=== PATIENT | female | born 1960 | race Caucasian/White ===

== ENCOUNTER 2023-10-20 09:00 | Day surgery (SDC) | payer OTHER, SELFPAY ==
--- NOTE | 2023-10-20 | PATH_ITS ---
[facility] Accession Number: [id number] No. of containers..02 Tissue . 01 Material submitted: . PART A: colon - CECAL POLYP PART B: colon - ASCENDING COLON POLYP . 01 Diagnosis: Part A: CECAL POLYP: Tubular adenoma. . Part B: ASCENDING COLON POLYP: Tubular adenoma. [facility] 10/24/2023 1458 Local . 01 Electronically signed: . Erasmo Caballero MD, Pathologist NPI- [id number] . 01 Gross description: . A. Received in formalin with two patient identifiers and cecal polyp, is a single luis soft tissue fragment, 0.3 cm in greatest dimension. Submitted in A1. . B. Received in formalin with two patient identifiers and ascending colon polyp, are two luis soft tissue fragments, 0.3 to 0.4 cm in greatest dimension. Submitted in B1. ([id number]) /MRV 10/24/2023 1458 Local . 01 Pathologist provided ICD-10: D12.0, D12.2 . 01 CPT . 621380, [id number] Specimen Comment: A courtesy copy of this report has been sent to [phone] Performed at: [address] [facility] [address], [place], [place] [id number] MD Erasmo Caballero MD Phone: [phone]
[2023-10-20 09:25] VITALS: BP 142/88; PULSE 83; RESP 17; TEMP 36.8; O2SAT 99
--- NOTE | 2023-10-20 09:31 | PM.HP.1 ---
History of Present Illness History of Present Illness Date Patient Seen: 10/20/23 Time Patient Seen: 09:32 Chief complaint: Screening Colonoscopy Narrative: Bebeto is a 62 year old woman here for a colonoscopy. Her last colonoscopy was 10 years ago. She believes polyps were removed. She does not know what type of polyps. Meds Home Medications and Allergies Home Medications Medication Instructions Recorded Confirmed Type Macrobid 100 mg PO BID 10/20/23 10/20/23 History Allergies Allergy/AdvReac Type Severity Reaction Status Date / Time No Known Drug Allergies Allergy Verified 10/20/23 09:19 Exam Const General: No acute distress Resp Effort & Inspection: normal respiratory effort Assessment & Plan Assessment and plan (1) Colon cancer screening: Status: Acute Plan We reviewed the risks and benefits of colonoscopy for colon cancer screening and she would like to proceed. Time-Based Coding :: [TOTAL MINUTES] spent with patient and on the chart (including review of chart, obtaining history, exam, reviewing outside data, placing orders, documenting exam and treatment plan, and counseling patient) on [DATE].
[2023-10-20] MEDS: LACTATED RINGERS 1,000 ML 42 ML IV (09:43)
[2023-10-20 10:34] VITALS: BP 105/74; PULSE 80; RESP 13; TEMP 36.4; O2SAT 92
--- NOTE | 2023-10-20 10:36 | PM.OP.COLON ---
Operative Date/Time/Diagnoses Date of procedure: 10/20/23 Time of procedure: 10:36 Pre-op diagnosis: Colon cancer screening Post-op diagnosis: same Procedure & Clinicians Study performed: Colonoscopy Same procedure as scheduled: Yes Surgeon: Uri Porras Procedure Notes Procedure in detail: Surgeon: Uri Porras MD Anesthesia: Ginna Syed CRNA Procedure: The patient was brought to the endoscopy suite, placed in left lateral decubitus position. The patient was connected to monitoring devices. A time-out was performed. Sedation was administered. Once the patient was adequately sedated, a digital rectal exam was performed and was normal. The scope was then inserted and advanced to the cecum where the appendiceal orifice was identified and photographed. The scope was then slowly withdrawn over greater than 6 minutes. The mucosa was thoroughly inspected. There was a 3 mm polyp in the cecum removed with a cold snare. There was a 5 mm polyp in the ascending colon removed with a cold snare. The scope was retroflexed in the rectum. No other abnormalities were seen. The scope was straightened and removed. The patient was awakened and brought to recovery. Scope withdrawal time: 10 minutes Sedation time: 16 minutes EBL: 2 mL Findings: 3 mm polyp in the cecum and 5 mm polyp ascending colon Post-procedure Disposition: PACU
[2023-10-20 10:39] VITALS: BP 108/73; PULSE 71; RESP 13; O2SAT 94
[2023-10-20 10:43] VITALS: BP 107/78; PULSE 64; RESP 13; O2SAT 95
[2023-10-20 10:44] VITALS: BP 112/79; PULSE 65; RESP 13; TEMP 36.2; O2SAT 93
== END 2023-10-20 11:05 | disposition home or self-care (01) ==
PROVIDERS: PCP Nurse Practitioner Family; Referring Provider Surgery; Visit Provider Surgery
PROC: 0DJD8ZZ Inspection of Lower Intestinal Tract, Via Natural or Artificial Opening Endoscopic (ICD-10-PCS; CPT 45378; principal; 2023-10-20 10:00)
DX: Z12.11 Encounter for screening for malignant neoplasm of colon (principal); D12.0 Benign neoplasm of cecum; D12.2 Benign neoplasm of ascending colon
CPT/HCPCS: 45385; J2704